=== PATIENT | female | born 1970 | race Caucasian/White ===

== ENCOUNTER 2020-04-29 14:23 | Outpatient (CLI) | payer OTHER, SELFPAY ==
[2020-04-29 15:40] LABS: Add Urine Microscopic? YES; Appearance Urine Clear (Clear); Bilirubin Urine Negative (Negative); Blood Urine 2+ (Negative); Color Urine Straw (Yellow); Glucose Urine UA Negative (Negative); Ketones Urine Negative (Negative); Leukocyte Esterase Ur Negative LEU/UL (NEGATIVE); Mucus Urine Rare /lpf; Nitrate Urine Negative (Negative); Protein Urine Negative (Negative); RBC Urine 0-2 /hpf (0-2); Specific Grav Ur 1.005 (1.001-1.035); Squamous Epithelial Cell Urine Few /hpf (Few); Urobilinogen Urine Negative mg/dL (<2.0); WBC Urine 0-3 /hpf (0-3)
== END 2020-04-29 14:24 | disposition home or self-care (01) ==
PROVIDERS: PCP Physician Assistant; Visit Provider Physician Assistant
DX: R30.0 Dysuria (principal)
CPT/HCPCS: 81001; 87077; 87086; 87088; 87186

== ENCOUNTER 2020-04-30 13:54 | Emergency (ER) | payer OTHER, SELFPAY ==
--- NOTE | ~2020-04-30 | CT_ITS ---
EXAMINATION: CT abdomen pelvis w con DATE: 04/30/2020 15:56 INDICATION: Left flank pain. History kidney stones. TECHNIQUE: Computed tomography (CT) of the abdomen and pelvis was performed with 100 cc Omnipaque 350 intravenous contrast. Automated exposure control and iterative reconstruction technique were employe d. Exam dose: 1476.90 mGy-cm total exam DLP. COMPARISON: 09/03/2016 CT abdomen pelvis FINDINGS: The lung bases are clear. Normal heart size. No pericardial or pleural effusion. The liver, gallbladder, bile ducts, pancreas and pancreatic duct are unremarkable. Likely benign hypoenhancing 1 cm splenic lesion. Normal splenic size. Normal morphology of the adrenal glands. No renal mass lesion or urinary tract calculus or hydroureteronephrosis is evident. There is urothelial enhancement of the left renal pelvis and mild left perinephric fat stranding, sug gesting possible pyelonephritis. The urinary bladder is unremarkable. Status post hysterectomy. 3.9 cm right ovarian cyst. Normal caliber of the abdominal aorta. No intraperitoneal or retroperitoneal or pelvic mass lesion or adenopathy or ascites is noted otherwise. Small sliding hiatal hernia. Normal appendix. No bowel obstruction, bowel wall thickening, pneumatosis or intraperitoneal free air . Small fat-containing umbilical hernia. No suspicious osteolytic or osteoblastic lesions are noted. There is moderate degenerative disease at L4-5 and L5-S1 and some degenerative spurring of the lower thoracic and lumbar spine. IMPRESSION: Mild asymmetric enhancement of the left renal pelvic urothelium and mild left perinephri c fat stranding, suggesting pyelonephritis No urinary tract stones or urinary tract obstruction is identified Reviewed, dictated and finalized at [facility]. Reviewed, dictated and finalized at location [facility]. IMPRESSION: Mild asymmetric enhancement of the left renal pelvic urothelium an d mild left perinephric fat stranding, suggesting pyelonephritis No urinary tract stones or urinary tract obstruction is identified
[2020-04-30 13:58] VITALS: BP 151/94; PULSE 98; RESP 20; TEMP 36.2; O2SAT 100
[2020-04-30 14:58] VITALS: BP 159/94; PULSE 91; RESP 18; TEMP 36.8; O2SAT 100
[2020-04-30 15:13] LABS: Basophils Absolute Auto 0.1 K/mm3 (0.0-0.1); Basophils Percent Auto 0.5 % (0.2-1.2); Eosinophils Absolute Auto 0.3 K/mm3 (0-0.3); Eosinophils Percent Auto 1.9 % (0-4.4); Hematocrit 41.8 % (37.0-47.0); Hemoglobin 14.1 g/dL (12.0-15.0); Immature Granulocyte Absolute 0.09 K/mm3 (0.00-0.031); Immature Granulocyte Percent A 0.5 % (0-0.5); Lymphocytes Percent Auto 15.2 % (18.3-44.2); Mean Corpuscular HGB Conc 33.7 g/dl (32-36); Mean Corpuscular Volume 91.9 fl (80-100); Mean Platelet Volume 10.2 fl (7.4-10.4); Monocytes Absolute Auto 1.7 K/mm3 (0.1-0.6); Monocytes Percent Auto 10.1 % (2.6-8.5); Neutrophils Absolute Auto 11.8 K/mm3 (1.3-6.7); Neutrophils Percent Auto 71.8 % (45.5-73.1); Platelet Count Result 264 k/mm3 (150-375); Red Blood Count 4.55 M/mm3 (4.2-5.4); Red Cell Distribution Width 12.9 % (11.5-14.5); White Blood Count 16.4 K/mm3 (4.5-10.0)
[2020-04-30 15:21] LABS: Add Urine Microscopic? YES; Appearance Urine Cloudy (Clear); Bacteria Urine Trace /hpf; Bilirubin Urine Negative (Negative); Blood Urine 2+ (Negative); Color Urine Yellow (Yellow); Glucose Urine UA Negative (Negative); Ketones Urine Negative (Negative); Leukocyte Esterase Ur 1+ LEU/UL (Negative); Mucus Urine Rare /lpf; Nitrate Urine Negative (Negative); Protein Urine 1+ mg/dL (Negative); Specific Grav Ur 1.016 (1.001-1.035); Squamous Epithelial Cell Urine Many /hpf (Few); Urobilinogen Urine Negative mg/dL (<2.0); WBC Clumps Urine Present /HPF; WBC Urine 31-50 /hpf
--- NOTE | 2020-04-30 15:31 | ED.GENADULT ---
HPI - General Adult General Chief complaint: Back Pain/Injury Stated complaint: Possible kidney stones Time Seen by Provider: 04/30/20 15:01 History of Present Illness HPI narrative: Patient is a 50-year-old female comes into the ED today complaining of left flank pain. The pain started 3 days ago. Is constant. Waxes and wanes in severity. She admits to chills and nausea without any fevers. Denies any urinary symptoms. Admits to previous history of similar symptoms due to kidney stones. She has had this happen to her 3 times before and it was all due to kidney stones. She does not have a urologist. The previous stones passed on their own without intervention. Was seen by her PCP yesterday, prescribed ketorolac which helps a little. Also prescribed Vicodin which she has not taken yet. A CT scan was ordered and this blood to be done tomorrow. Urinalysis was done which was negative for UTI but did show blood. Related Data Allergies Allergy/AdvReac Type Severity Reaction Status Date / Time No Known Allergies Allergy Verified 04/29/20 14:05 Review of Systems Constitutional: Constitutional: Reports as per HPI, Reports chills, Denies fever(s), Denies night sweats and Denies weakness Cardiovascular: Cardiovascular: Denies chest pain, Denies edema, Denies leg edema, Denies dyspnea and Denies orthopnea Respiratory: Respiratory: Denies cough and Denies dyspnea Gastrointestinal: Gastrointestinal: Denies abdominal pain, Denies constipation, Denies diarrhea, Denies nausea and Denies vomiting Comments: See HPI for flank pain Musculoskeletal: Musculoskeletal: Denies abnormal gait, Denies back pain, Denies numbness and Denies tingling Neurologic: Denies Abnormal speech present, Denies abnormal gait, Denies numbness, Denies tingling and Denies weakness Psychiatric: Psychiatric: Denies homicidal ideation and Denies suicidal ideation [facility] Past Medical History Medical History (Updated 04/30/20 @ 18:25 by Roland Gay PA-C) Depression GERD (gastroesophageal reflux disease) Surgical History Surgical History Delivery by section 4x Family History Family History Father Family history of malignant neoplasm Mother Patient's mother is in good health Social History Social History (Updated 04/29/20 @ 14:05 by Clair Rodriguez [facility]) Smoking packs per day: 1 Smoking cigarettes per day: 20.0 Years smoked: 37 Smoking pack-years: 37.00 Smoking status: Current every day smoker Tobacco type: cigarettes Second hand tobacco smoke exposure: No Alcohol intake: current Exam Const: General: cooperative, healthy appearing, comfortable, no acute distress, well developed, alert, awake and Physically active Orientation/consciousness: patient oriented x3 Other: Well-appearing, pleasant HENMT: Head: normal to inspection, normocephalic and atraumatic Ears: external ears normal General nose exam: Normal external nose present Eyes: Pupils: Equal, round and reactive pupils present EOM: EOMs intact bilaterally Neck: Neck: normal visual inspection Chest: Chest palpation & inspection: normal inspection of the chest and no tenderness Resp: Effort & Inspection: normal respiratory effort and able to speak in complete sentences Auscultation: clear to auscultation bilaterally Cardio: Rate: regular rate Rhythm: regular rhythm GI: Inspection: normal to inspection GI Palp: Yes abdominal tenderness (Tender to palpate over left upper quadrant, left flank, left lower quadrant) : General: Yes CVA tenderness (Left-sided CVA tenderness) Back/Spine/Pelvis: Back: CVA tenderness Thoracic/Lumbar Spine: thoracic and lumbar spine normal to inspection Skin: General skin exam: normal color and no rashes or lesions noted Lesions: no lesions Neuro: General: patient oriented x3, no focal motor deficits and CN's II-X
[2020-04-30 15:34] LABS: Anion Gap 5 mmol/L (8-16); Blood Urea Nitrogen 13 mg/dL (7-17); Calcium 8.6 mg/dL (8.4-10.2); Carbon Dioxide 29 mmol/L (22-30); Chloride 104 mmol/L (98-107); Estimated CRCL calculation 100 ml/min; Estimated Glomerular Filt Rate > 60; Glucose 110 mg/dL (65-105); Potassium 4.2 mmol/L (3.4-5.0); Sodium 138 mmol/L (137-145)
[2020-04-30] MEDS: MORPHINE SULFATE (*CRX) 4 MG/ML INJ IV PUSH (15:59)
[2020-04-30] MEDS: LACTATED RINGERS 1,000 ML 999 ML IV CONT (15:59)
[2020-04-30] MEDS: KETOROLAC 15 MG/ML VIAL (*BKC) IV PUSH (16:50)
[2020-04-30] MEDS: ONDANSETRON INJ 4 MG/2 ML VIAL IV PUSH (16:51)
[2020-04-30 17:19] LABS: Lactic Acid Reflex 1.3 mmol/L (0.7-2.1)
[2020-04-30 17:37] VITALS: BP 130/70; PULSE 78; RESP 18; O2SAT 97
[2020-04-30 18:24] VITALS: BP 132/78; PULSE 80; RESP 18; O2SAT 99
== END 2020-04-30 18:25 | disposition home or self-care (01) ==
PROVIDERS: Physician Assistant Medical; Emergency Provider Emergency Medicine; PCP Physician Assistant
DX: N12 Tubulo-interstitial nephritis, not specified as acute or chronic (principal); K21.9 Gastro-esophageal reflux disease without esophagitis; F17.210 Nicotine dependence, cigarettes, uncomplicated
CPT/HCPCS: 36415; 74177; 80048; 81001; 83605; 85025; 87077; 87086; 87088; 87186; 96361; 96365; 96375; 99284; J0696; J1885; J2270; J2405; J7120; Q9967

== ENCOUNTER → 2020-07-25 07:15 | Outpatient (CLI) | payer OTHER, SELFPAY ==
[2020-07-25 19:26] LABS: SARS-CoV-2 RNA PCR Negative
== END ==
PROVIDERS: PCP Physician Assistant; Visit Provider Physician Assistant
DX: R06.02 Shortness of breath (principal); Z20.822 Contact with and (suspected) exposure to COVID-19
CPT/HCPCS: C9803; U0003; U0005

== ENCOUNTER 2021-03-09 07:43 | Outpatient (CLI) | payer OTHER, SELFPAY ==
[2021-03-09 09:00] LABS: Basophils Absolute Auto 0.1 K/mm3 (0.0-0.1); Basophils Percent Auto 0.9 % (0.2-1.2); Eosinophils Absolute Auto 0.4 K/mm3 (0-0.3); Eosinophils Percent Auto 4.4 % (0-4.4); Hematocrit 43.8 % (37.0-47.0); Hemoglobin 14.9 g/dL (12.0-15.0); Immature Granulocyte Absolute 0.03 K/mm3 (0.00-0.031); Immature Granulocyte Percent A 0.3 % (0-0.5); Lymphocytes Absolute Auto 2.88 K/mm3 (0.9-3.2); Lymphocytes Percent Auto 29.7 % (18.3-44.2); Mean Corpuscular Hemoglobin 30.8 pg (26-34); Mean Corpuscular Volume 90.5 fl (80-100); Mean Platelet Volume 10.4 fl (7.4-10.4); Monocytes Absolute Auto 0.8 K/mm3 (0.1-0.6); Monocytes Percent Auto 8.1 % (2.6-8.5); Neutrophils Absolute Auto 5.5 K/mm3 (1.3-6.7); Neutrophils Percent Auto 56.6 % (45.5-73.1); Platelet Count Result 273 k/mm3 (150-375); Red Blood Count 4.84 M/mm3 (4.2-5.4); White Blood Count 9.7 K/mm3 (4.5-10.0)
[2021-03-09 09:04] LABS: Alanine Aminotransferase 27 U/L (4-35); Albumin Level 4.6 g/dL (3.5-5.1); Alkaline Phosphatase 99 U/L (38-126); Anion Gap 7 mmol/L (8-16); Aspartate Amino Transferase 26 U/L (14-36); Bilirubin,Total 0.4 mg/dL (0.2-1.3); Blood Urea Nitrogen 18 mg/dL (7-17); Calcium 9.4 mg/dL (8.4-10.2); Carbon Dioxide 30 mmol/L (22-30); Chloride 103 mmol/L (98-107); Cholesterol 175 mg/dL (0-200); Estimated Glomerular Filt Rate > 60; Glucose 134 mg/dL (65-110); HDL Direct 37 mg/dL; Potassium 4.3 mmol/L (3.4-5.0); Sodium 140 mmol/L (137-145); Triglycerides 211 mg/dL (<150)
[2021-03-09 09:13] LABS: Hemoglobin A1C 6.8 % (<5.7)
[2021-03-09 09:15] LABS: LDL Cholesterol Direct 111 mg/dL
[2021-03-09 09:25] LABS: Vitamin D 25 Hydroxy 16.9 ng/mL
[2021-03-09 10:10] LABS: Folic Acid 9.4 ng/mL (2.76->20)
[2021-03-09 11:23] LABS: Creatinine Urine 193.2 mg/dL
[2021-03-09 11:27] LABS: MALB Creatinine Ratio 6.7 mg/g (0-30); Microalbumin Urine Random 12.9 mg/L (0-16.7)
== END 2021-03-09 07:44 | disposition home or self-care (01) ==
PROVIDERS: PCP Physician Assistant; Visit Provider Physician Assistant
DX: E11.9 Type 2 diabetes mellitus without complications (principal); R53.83 Other fatigue; E55.9 Vitamin D deficiency, unspecified
CPT/HCPCS: 36415; 80053; 80061; 82043; 82306; 82607; 82746; 83036; 84443; 85025

== ENCOUNTER 2021-12-10 09:58 | Emergency (ER) | payer OTHER, SELFPAY ==
--- NOTE | ~2021-12-10 | XR_ITS ---
EXAMINATION: XR chest 2V DATE: 12/10/2021 10:43 INDICATION: Upper back pain radiating to left shoulder. TECHNIQUE: Frontal and lateral views of the chest were obtained. COMPARISON: Chest 2 views 10/25/2018, CT abdomen and pelvis 04/30/2020 FINDINGS: The chest demonstrates clear lungs without pneumonia, pleural effusion, or pneumothorax. Th e heart size is normal. IMPRESSION: 1. No acute cardiopulmonary disease. Reviewed, dictated and finalized at location A.
--- NOTE | 2021-12-10 10:05 | ECG_ITS ---
Measurements Intervals [place] Rate: 72 P: 50 RI: 138 QRS: 17 QRSD: 87 T: 47 QT: 372 QTc: 409 Interpretive Statements SINUS RHYTHM DELAYED PRECORDIAL R/S TRANSITION BORDERLINE ECG COMPARED TO ECG 10/25/2018 10:27:39 NO SIGNIFICANT CHANGES Electronically Signed On 12-10-2021 10:18:53 CDT by Antonio Mathew D.O.
[2021-12-10 10:07] VITALS: BP 154/101; PULSE 81; RESP 16; TEMP 36.4; O2SAT 99
[2021-12-10 10:22] LABS: Basophils Absolute Auto 0.1 K/mm3 (0.0-0.1); Basophils Percent Auto 0.8 % (0.2-1.2); Eosinophils Absolute Auto 0.6 K/mm3 (0-0.3); Eosinophils Percent Auto 5.8 % (0-4.4); Hemoglobin 13.6 g/dL (12.0-15.0); Immature Granulocyte Absolute 0.03 K/mm3 (0.00-0.031); Immature Granulocyte Percent A 0.3 % (0-0.5); Lymphocytes Percent Auto 29.7 % (18.3-44.2); Mean Corpuscular HGB Conc 33.2 g/dl (32-36); Mean Corpuscular Hemoglobin 30.7 pg (26-34); Mean Corpuscular Volume 92.6 fl (80-100); Mean Platelet Volume 10.2 fl (7.4-10.4); Monocytes Absolute Auto 0.8 K/mm3 (0.1-0.6); Monocytes Percent Auto 8.3 % (2.6-8.5); Neutrophils Absolute Auto 5.2 K/mm3 (1.3-6.7); Neutrophils Percent Auto 55.1 % (45.5-73.1); Platelet Count Result 285 k/mm3 (150-375); Red Blood Count 4.43 M/mm3 (4.2-5.4); Red Cell Distribution Width 12.5 % (11.5-14.5); White Blood Count 9.4 K/mm3 (4.5-10.0)
[2021-12-10 10:33] LABS: INR 0.9; Partial Thromboplastin Time 22.6 SECONDS (22.3-36.8)
[2021-12-10 10:46] LABS: Alanine Aminotransferase 24 U/L (6-35); Albumin Level 4.1 g/dL (3.5-5.1); Alkaline Phosphatase 111 U/L (38-126); Anion Gap 12 mmol/L (8-16); Aspartate Amino Transferase 25 U/L (14-36); Bilirubin,Total 0.1 mg/dL (0.2-1.3); Blood Urea Nitrogen 12 mg/dL (7-17); Calcium 8.6 mg/dL (8.4-10.2); Carbon Dioxide 23 mmol/L (22-30); Chloride 104 mmol/L (98-107); Estimated CRCL calculation 90 ml/min; Estimated Glomerular Filt Rate > 60; Glucose 142 mg/dL (65-110); Lipase 273 U/L (23-300); Sodium 139 mmol/L (137-145)
[2021-12-10 10:57] LABS: Troponin I < 0.012 ng/mL (0.000-0.034)
[2021-12-10] MEDS: IBUPROFEN 400 MG TABLET 800 MG PO (12:11)
[2021-12-10] MEDS: ACETAMINOPHEN 500 MG TABLET 1000 MG PO (12:12)
[2021-12-10] MEDS: methocarbamoL 750 MG TABLET 1500 MG PO (12:17)
[2021-12-10] MEDS: LIDOCAINE 5% PATCH 1 PATCH TRANSDERM (12:19)
--- NOTE | 2021-12-10 12:45 | ED.GENADULT ---
HPI - General Adult General Chief complaint: Back Pain/Injury Stated complaint: back pain Time Seen by Provider: 12/10/21 11:19 History of Present Illness HPI narrative: This is a 51-year-old female presenting ED with upper back pain. 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 The next day she woke up with severe pain in her upper left back. Pain is worse with movement. Patient did go to her chiropractor who treated her with electro therapy which has not improved her symptoms. Patient denies chest pain, difficulty breathing, numbness tingling weakness in extremity. Patient has taken some NSAIDs without relief. Related Data Allergies Allergy/AdvReac Type Severity Reaction Status Date / Time No Known Allergies Allergy Verified 12/10/21 11:07 Review of Systems Review of Systems: CONSTITUTIONAL: Denies night sweats. EYES: No eye pain ENT: Denies rhinorrhea CARDIOVASCULAR: Denies palpitations RESPIRATORY: Denies hemoptysis GASTROINTESTINAL: Denies hematemesis GENITOURINARY: Denies hematuria. SKIN: Denies rash MUSCULOSKELETAL: Denies myalgia. NEUROLOGIC: Denies weakness. PSYCHIATRIC: Denies delusions [facility] Past Medical History Medical History Depression GERD (gastroesophageal reflux disease) Surgical History Surgical History Delivery by section 4x Family History Family History Father Family history of malignant neoplasm Mother Patient's mother is in good health Social History Social History Smoking packs per day: 1 Smoking cigarettes per day: 20.0 Years smoked: 37 Smoking pack-years: 37.00 Smoking status: Current every day smoker Tobacco type: cigarettes Second hand tobacco smoke exposure: No Alcohol intake: current Exam Narrative: APPEARANCE: No apparent distress. Head atraumatic. EYES: PERRLA/EOMI, NOSE: Normal no drainage NECK: Supple, Trachea midline RESPIRATORY: CTAB, No increased work of breathing. CARDIOVASCULAR: S1S2 appreciated ABDOMINAL: Soft, nontender, nondistended, MUSCULOSKELETAl: No obvious deformities, tenderness over the left trapezius muscle. No midline tenderness. Full range of movement of the left arm. NEURO: Alert. Moving 4/4 extremities SKIN:: Warm, dry. Normal color PSYCHIATRIC: Normal affect Course Vital Signs Vital signs: Vital Signs Temperature 97.6 F 12/10/21 10:07 Pulse Rate 81 12/10/21 10:07 Respiratory Rate 16 12/10/21 10:07 Blood Pressure 154/101 H 12/10/21 10:07 Pulse Oximetry 99 12/10/21 10:07 Oxygen Delivery Room Air 12/10/21 10:07 Temperature 97.6 F 12/10/21 10:07 Pulse Rate 81 12/10/21 10:07 Respiratory Rate 16 12/10/21 10:07 Blood Pressure 154/101 H 12/10/21 10:07 Pulse Oximetry 99 12/10/21 10:07 Oxygen Delivery Room Air 12/10/21 10:07 Medical Decision Making MDM Narrative Medical decision making narrative: This is a 51-year-old female presenting ED with upper back pain following increased physical activity. Patient has tenderness over the trapezius muscle. Patient retried Motrin Tylenol Robaxin and lidocaine patch. Patient be discharged primary care follow-up. Vital Signs Vital Signs: Vital Signs Temperature 97.6 F 12/10/21 10:07 Pulse Rate 81 12/10/21 10:07 Respiratory Rate 16 12/10/21 10:07 Blood Pressure 154/101 H 12/10/21 10:07 Pulse Oximetry 99 12/10/21 10:07 Oxygen Delivery Room Air 12/10/21 10:07 Temperature 97.6 F 12/10/21 10:07 Pulse Rate 81 12/10/21 10:07 Respiratory Rate 16 12/10/21 10:07 Blood Pressure 154/101 H 12/10/21 10:07 Pulse Oximetry 99 12/10/21 10:07 Oxygen Delivery Room Air 12/10/21 10:07 Lab Data Result diagrams: 12/10/21
[2021-12-10 13:00] VITALS: BP 134/75; PULSE 77; RESP 16; O2SAT 97
== END 2021-12-10 13:00 | disposition home or self-care (01) ==
PROVIDERS: Emergency Provider Emergency Medicine; PCP Physician Assistant
DX: M54.6 Pain in thoracic spine (principal); K21.9 Gastro-esophageal reflux disease without esophagitis; F17.210 Nicotine dependence, cigarettes, uncomplicated
CPT/HCPCS: 36415; 71046; 80053; 83690; 84484; 85025; 85610; 85730; 93005; 99284; A9270

== ENCOUNTER 2022-01-04 07:21 | Outpatient (CLI) | payer OTHER, SELFPAY ==
[2022-01-04 08:29] LABS: Hemoglobin A1C 7.6 % (<5.7)
[2022-01-04 09:20] LABS: Alanine Aminotransferase 37 U/L (6-35); Albumin Level 4.3 g/dL (3.5-5.1); Alkaline Phosphatase 116 U/L (38-126); Anion Gap 11 mmol/L (8-16); Aspartate Amino Transferase 42 U/L (14-36); Bilirubin,Total 0.5 mg/dL (0.2-1.3); Blood Urea Nitrogen 11 mg/dL (7-17); Calcium 8.8 mg/dL (8.4-10.2); Carbon Dioxide 23 mmol/L (22-30); Chloride 104 mmol/L (98-107); Estimated Glomerular Filt Rate > 60; Glucose 157 mg/dL (65-110); Potassium 4.3 mmol/L (3.4-5.0); Sodium 138 mmol/L (137-145)
== END 2022-01-04 07:22 | disposition home or self-care (01) ==
LOC: ANHLAB 07:24
PROVIDERS: PCP Physician Assistant; Visit Provider Physician Assistant
DX: E11.9 Type 2 diabetes mellitus without complications (principal)
CPT/HCPCS: 36415; 80053; 83036

== ENCOUNTER 2022-02-21 16:48 | Emergency (ER) | payer OTHER, SELFPAY ==
[2022-02-21 17:09] VITALS: BP 153/93; PULSE 113; RESP 14; TEMP 37.3; O2SAT 99
[2022-02-21 17:35] LABS: Basophils Absolute Auto 0.1 K/mm3 (0.0-0.1); Basophils Percent Auto 0.5 % (0.2-1.2); Eosinophils Absolute Auto 0.3 K/mm3 (0-0.3); Eosinophils Percent Auto 1.9 % (0-4.4); Hematocrit 39.6 % (37.0-47.0); Hemoglobin 13.3 g/dL (12.0-15.0); Immature Granulocyte Absolute 0.05 K/mm3 (0.00-0.031); Immature Granulocyte Percent A 0.4 % (0-0.5); Lymphocytes Absolute Auto 2.34 K/mm3 (0.9-3.2); Lymphocytes Percent Auto 16.9 % (18.3-44.2); Mean Corpuscular HGB Conc 33.6 g/dl (32-36); Mean Corpuscular Hemoglobin 30.7 pg (26-34); Mean Corpuscular Volume 91.5 fl (80-100); Mean Platelet Volume 10.3 fl (7.4-10.4); Monocytes Absolute Auto 1.2 K/mm3 (0.1-0.6); Monocytes Percent Auto 8.8 % (2.6-8.5); Neutrophils Absolute Auto 9.9 K/mm3 (1.3-6.7); Neutrophils Percent Auto 71.5 % (45.5-73.1); Platelet Count Result 254 k/mm3 (150-375); Red Blood Count 4.33 M/mm3 (4.2-5.4); Red Cell Distribution Width 12.8 % (11.5-14.5); White Blood Count 13.8 K/mm3 (4.5-10.0)
[2022-02-21 17:45] LABS: Alanine Aminotransferase 34 U/L (6-35); Albumin Level 4.2 g/dL (3.5-5.1); Alkaline Phosphatase 106 U/L (38-126); Anion Gap 7 mmol/L (8-16); Aspartate Amino Transferase 23 U/L (14-36); Bilirubin,Total 0.4 mg/dL (0.2-1.3); Blood Urea Nitrogen 10 mg/dL (7-17); Calcium 8.5 mg/dL (8.4-10.2); Carbon Dioxide 25 mmol/L (22-30); Chloride 105 mmol/L (98-107); Estimated CRCL calculation 112 ml/min; Estimated Glomerular Filt Rate > 60; Glucose 122 mg/dL (65-110); Lipase 55 U/L (23-300); Sodium 137 mmol/L (137-145)
[2022-02-21 18:32] LABS: Bilirubin Urine Negative (Negative); Blood Urine 2+ (Negative); Glucose Urine UA Negative (Negative); Ketones Urine Negative (Negative); Leukocyte Esterase Ur 2+ LEU/UL (Negative); Nitrate Urine Negative (Negative); Protein Urine 2+ mg/dL (Negative); Specific Grav Ur 1.015 (1.001-1.035); Urobilinogen Urine 0.2 mg/dL (<2.0); pH Urine 6.5 (5.0-9.0)
[2022-02-21 18:35] LABS: Add Urine Microscopic? YES; Appearance Urine Slightly Cloudy (Clear); Color Urine Yellow (Yellow)
[2022-02-21 18:37] LABS: Bacteria Urine Trace /hpf; Mucus Urine Rare /lpf; Squamous Epithelial Cell Urine Occasional /hpf (Few); WBC Urine >75 /hpf
--- NOTE | 2022-02-21 20:56 | PC.NURSE ---
Patient approached nurses station and reported that she was not waiting any longer and wanted to leave. Patient was alert and ambulatory upon leaving the ED.
== END 2022-02-22 06:54 | disposition left against medical advice (07) ==
LOC: ANHED 21:09
PROVIDERS: Emergency Provider Emergency Medicine; PCP Physician Assistant
DX: R10.31 Right lower quadrant pain (principal)
CPT/HCPCS: 36415; 80053; 81001; 83690; 85025; 87077; 87086; 87186; 99199

== ENCOUNTER 2024-04-01 10:58 | Outpatient (CLI) | payer OTHER, SELFPAY ==
[2024-04-01 11:35] LABS: Alanine Aminotransferase 17 U/L (6-35); Albumin Level 4.2 g/dL (3.5-5.1); Alkaline Phosphatase 97 U/L (38-126); Anion Gap 8 mmol/L (4-12); Aspartate Amino Transferase 21 U/L (14-36); Bilirubin,Total 0.3 mg/dL (0.2-1.3); Blood Urea Nitrogen 17 mg/dL (7-17); Calcium 9.4 mg/dL (8.4-10.2); Carbon Dioxide 28 mmol/L (22-30); Chloride 105 mmol/L (98-107); Cholesterol 149 mg/dL (0-200); Estimated Glomerular Filt Rate > 60; Glucose 85 mg/dL (65-110); HDL Direct 40 mg/dL; Potassium 4.4 mmol/L (3.4-5.0); Sodium 141 mmol/L (137-145); Triglycerides 86 mg/dL (<150)
[2024-04-01 11:46] LABS: LDL Cholesterol Direct 84 mg/dL
[2024-04-01 12:03] LABS: Vitamin D 25 Hydroxy 29.7 ng/mL
--- OUTSIDE RECORDS SUMMARY | 2024-04-01 12:44 | XMS_ITS | Referral Summary ---
Author Organization [facility] [employer] Address [address] [place] [address] Care Team Providers Care Dumpster Operator Name Role Phone Unavailable Primary Care Provider Unavailabl e Source Comments [facility] [employer],non-owned Affiliates and Associated Physician Practices is amultiple site organization consisting of ambulatory clinics and hospital sitesin [place], [place], [place] and [place]. This disclosure is being madepursuant to the Care Everywhere program and may not contain all information available regarding this patient. Last updated 17.[employer] Allergies No known active allergies Medications * Be aware that medications may not be up to date on this document. Alwaysverify current medications with the patient. Medication Sig Dispensed Refills Start Date End Date Status Acetaminophen (TYLENOL EXTRA STRENGTH PO) Take by mouth once. Active aspirin-acetaminophen- caffeine (EXCEDRIN MIGRAINE) 250-250-65 MG tablet Take 1 Tab by mouth every 4 hours as needed. Active omeprazole (PRILOSEC) 10 MG capsule Take 10 mg by mouth daily before breakfast. prn Active cyclobenzaprine (FLEXERIL) 10 MG tablet Take 0.5 Tabs by mouth 3 times daily as needed for Muscle Spasms. 20 Tab 0 05/07/2012 Active Vqfvmyd-Ywhzlrnlu-Lyko min D (CALCIUM MAGNESIUM PO) Take by mouth once daily. Active phentermine (IONAMINE) 15 MG capsule Take 1 Cap by mouth daily before breakfast. 30 Cap 0 07/13/2012 Active escitalopram (LEXAPRO) 20 MG tablet Take 20 mg by mouth once daily Active budesonide-formoterol (SYMBICORT) 160-4.5 MCG/ACT inhaler Inhale 2 Puffs by mouth 2 times daily Active albuterol HFA (PROAIR HFA) 108 (90 BASE) MCG/ACT inhaler Inhale 2 Puffs by mouth every 6 hours as needed Active Ephedrine-Guaifenesin (BRONKAID PO) Take by mouth as needed Active Active Problems Problem Noted Date Diagnosed Date Dysmetabolic syndrome X 11/03/2010 Overview (11/03/2010): TSH 04/16 Morbid obesity 04/15/2010 Classic migraine 04/15/2010 Overview (04/15/2010): Not bad enough to take prophylactic Alcohol use 04/15/2010 Overview (04/15/2010): Binge pattern Seasonal allergic rhinitis 04/15/2010 GERD (gastroesophageal reflux disease) 1 Overview (04/15/2010): prilosec works well Immunizations Name Administration Dates Next Due TD VACCINE 02/06/2005 Social History Tobacco Use Types Packs/Day Years Used Date Smoking Tobacco: Passive Smoke Exposure - Never Smoker Cigarettes 0.5 25 - 04/12/2010 Smokeless Tobacco: Never Alcohol Use Standard Drinks/Week Comments Yes 0 (1 standard drink = 0.6 oz pur e alcohol) 12 beers/day rarely Sex and Gender Information Value Date Recorded Sex Assigned at Not on file Gender Identity Not on file Sexual Orientation Not on file Last Filed Vital Signs Vital Sign Reading Time Taken Comments Blood Pressure 162/74 10/03/2014 1:25 PM CDT Pulse 89 10/03/2014 1:25 PM CDT Temperature 36.4 C (97.5 F) 07/13/2012 9:43 AM CDT Respiratory Rate 18 07/13/2012 9:43 AM CDT Oxygen Saturation 98% 07/13/2012 9:43 AM CDT Inhaled Oxygen Concentration - - Weight 137.7 kg (303 lb 8 oz) 10/03/2014 1:25 PM CDT Height 171.5 cm (5' 7.5 ) 10/03/2014 1:25 PM CDT Body Mass Index 46.83 10/03/2014 1:25 PM CDT Plan of Treatment Not on file Procedures Procedure Name Priority Date/Time Associated Diagnosis Comments LIPID PROFILE Routine 06/17/2010 8:55 AM CDT Lipid screening Screen-endoc/nut/met NEC from Last 3 Months or Most Recently Relevant to Health Maintenance Results * (ABNORMAL) LIPID PROFILE (06/17/2010 8:55 AM CDT) Cholesterol 193 100 - 199 mg/dL [facility] ACCOUNT BILL Triglycerides 185(H) 0 - 149 mg/dL [facility] ACCOUNT BILL HDL Cholesterol 33(L) >39 mg/dL [facility] ACCOUNT BILL Comment: According to ATP-III Guidelines, HDL-C >59 mg/dL is considered a negative risk factor for CHD. VLDL Calculated 37 5 - 40 mg/dL [facility] ACCOUNT BILL LDL Calculated 123(H) 0 - 99 mg/dL [facility] ACCOUNT BILL BLOOD SPECIMEN / Unknown 06/17/2010 8:55 AM CDT 06/17/2010 1:39 PM CDT Narrative Resulting Agency Comment [facility] [address] [id number] Reyes Puente MD LAB - CHEMISTRY KATHI ELLIS Performing Organization Address City/State/[facility] Co de Phone Number [facility] ACCOUNT BILL from Last 3 Months or Most Recently Relevant to Health Maintenance Claudine Irizarry Personal/Family Self [address] [place] [id number] Claudine Irizarry Personal/Family Self 1970 [address] [place] [address]
--- OUTSIDE RECORDS SUMMARY | 2024-04-01 12:44 | XMS_ITS | Clinical Summary ---
Author Organization [employer] Address [address] [place] [address] Care Team Providers Care Clipper Operator Name Role Phone Unavailable Primary Care Provider Unavailabl e Source Comments [facility] [employer],non-owned Affiliates and Associated Physician Practices is amultiple site organization consisting of ambulatory clinics and hospital sitesin [place], [place], [place] and [place]. This disclosure is being madepursuant to the Care Everywhere program and may not contain all information available regarding this patient. Last updated 17.[employer] Allergies No known active allergies Medications * [...] Muscle Spasms. 20 Tab 0 05/07/2012 Active Kpndwbs-Oxbolexyv-Okei min D (CALCIUM MAGNESIUM PO) Take by [...] Administration Dates Next Due TD VACCINE 02/06/2005 Family History Medical History Relation Name Comments Diabetes Maternal Grandmother Heart Failure Maternal Grandmother Hypertension Maternal Grandmother Stroke Maternal Grandmother Relation Name Status Comments Maternal Grandfather Maternal Grandmother Mother Alive Social History Tobacco Use Types Packs/Day Years [...] 10/03/2014 1:25 PM CDT Plan of Treatment Health Maintenance Due Date Last Done Comments COLOGUARD (AGES 45-75) - COL ON CA SCREENING 1970 COLON MONITORING 1968 COLONOSCOPY - COLON CA SCREENING 1968 CT COLONOGRAPHY - COLON CA SCREENING 1970 Colorectal Cancer Screening 1970 FIT - COLON CA SCREENING 1968 FLEX SIG - COLON CA SCREENING 1970 MAMMOGRAM 1970 PAP SMEAR 1968 HIV SCREENING 01/06/1983 HEPATITIS C SCREENING 01/02/1986 HEPATITIS B VACCINE (1 of 3 - 19+ 3-dose series) 01/06/1987 LIPID TESTING 06/18/2011 06/17/2010 DTAP/TDAP/TD VACCINES (2 - T d or Tdap) 02/06/2015 02/06/2005 PNEUMOCOCCAL VACCINE 50+ (1 of 1 - PCV) 01/06/2018 ZOSTER VACCINE (1 of 2) 01/06/2018 COVID-19 VACCINE (1 - 2023-2 5 season) 2023 INFLUENZA VACCINE (#1) 2023 DEPRESSION SCREENING 02/07/2024 HIB VACCINE Aged Out No longer eligi ble based on patient's age to complete this topic HPV VACCINE Aged Out No longer eligi ble based on patient's age to complete this topic MENINGOCOCCAL (Group B) VACCINE Aged Out No longer eligible based on patient's age to complete this topic MENINGOCOCCAL VACCINE Aged Out No danelle aster eligible based on patient's age to complete this topic PNEUMOCOCCAL VACCINE Aged Out No long er eligible based on patient's age to complete this topic Procedures Procedure Name Priority Date/Time Associated Diagnosis [...] PM CDT Narrative Resulting Agency Comment [facility] [address] [id number] Reyes Puente MD LAB - CHEMISTRY KATHI ELLIS [facility] ACCOUNT BILL from Last 3 Months or Most Recently Relevant to Health Maintenance Claudine Irizarry Personal/Family Self [address] [place] [address] Juan CClaudine Alejandro Personal/Family Self 1970 [address] [place] [address]
--- OUTSIDE RECORDS SUMMARY | 2024-04-01 12:44 | XMS_ITS | Patient Health Summary ---
Author Organization [facility] Address [address] [place] [address] Care Team Providers Care Public Relations Specialist Name Role Phone Unavailable Primary Care Provider Unavailabl e Note from [facility],non-owned Affiliates and Associated Physician Practices is amultiple site organization consisting of ambulatory clinics and hospital sitesin [place], [place], [place] and [place]. This disclosure is being madepursuant to the Care Everywhere program and may not contain all information available regarding this patient. Last updated 17.[facility] Allergies No known active allergies Medications * Be aware that medications may not be up to date on this document. Alwaysverify current medications with the patient. * Acetaminophen (TYLENOL EXTRA STRENGTH PO) Take by mouth once. * gawomlt-elsazthmrgoqr-gnaltgeg (EXCEDRIN MIGRAINE) 250-250-65 MG tablet Take 1 Tab by mouth every 4 hours as needed. * omeprazole (PRILOSEC) 10 MG capsule Take 10 mg by mouth daily before breakfast. prn * cyclobenzaprine (FLEXERIL) 10 MG tablet(Started 05/07/2012) Take 0.5 Tabs by mouth 3 times daily as needed for Muscle Spasms. * Ljsdsiw-Sueivxpfv-Inyictw D (CALCIUM MAGNESIUM PO) Take by mouth once daily. * phentermine (IONAMINE) 15 MG capsule(Started 07/13/2012) Take 1 Cap by mouth daily before breakfast. * escitalopram (LEXAPRO) 20 MG tablet Take 20 mg by mouth once daily * budesonide-formoterol (SYMBICORT) 160-4.5 MCG/ACT inhaler Inhale 2 Puffs by mouth 2 times daily * albuterol HFA (PROAIR HFA) 108 (90 BASE) MCG/ACT inhaler Inhale 2 Puffs by mouth every 6 hours as needed * Ephedrine-Guaifenesin (BRONKAID PO) Take by mouth as needed Active Problems Problem Noted Date Diagnosed Date Dysmetabolic syndrome X 11/03/2010 Morbid obesity 04/15/2010 Classic migraine 04/15/2010 Alcohol use 04/15/2010 Seasonal allergic rhinitis 04/15/2010 GERD (gastroesophageal reflux disease) 1 Immunizations * TD VACCINE(Given 02/06/2005) Social History Tobacco Use Types Packs/Day Years [...] Mass Index 46.83 10/03/2014 1:25 PM CDT Procedures * CBC W AUTO DIFFERENTIAL(Performed 06/17/2010) Performed for Lipid screening, Screen-endoc/nut/met NEC * COMPREHENSIVE METABOLIC PANEL(Performed 06/17/2010) Performed for Lipid screening, Screen-endoc/nut/met NEC * TSH HI LOW REFLEX FREE T4(Performed 06/17/2010) Performed for Lipid screening, Screen-endoc/nut/met NEC * LIPID PROFILE(Performed 06/17/2010) Performed for Lipid screening, Screen-endoc/nut/met NEC Results * TSH HI LOW REFLEX FREE T4 (PO REF LAB) (06/17/2010 8:55 AM CDT) TSH 1.270 0.450 - 4.500 uIU/mL [facility] ACCOUNT BILL BLOOD SPECIMEN / Unknown 06/17/2010 8:55 AM CDT 06/17/2010 1:39 PM CDT Narrative Resulting Agency Comment [facility] [address] [phone] Reyes Puente MD LAB - CHEMISTRY KATHI ELLIS [facility] ACCOUNT BILL * CBC W AUTO DIFFERENTIAL (06/17/2010 8:55 AM CDT) WBC 8.7 4.0 - 10.5 x10E3/uL [facility] ACCOUNT BILL RBC 4.47 3.80 - 5.10 x10E6/uL [facility] ACCOUNT BILL Hemoglobin 12.4 11.5 - 15.0 g/dL [facility] ACCOUNT BILL Hematocrit 37.4 34.0 - 44.0 % [facility] ACCOUNT BILL MCV 84 80 - 98 fL [facility] ACCOUNT BILL MCH 27.7 27.0 - 34.0 pg [facility] ACCOUNT BILL MCHC 33.2 32.0 - 36.0 g/dL [facility] ACCOUNT BILL RDW 14.7 11.7 - 15.0 % [facility] ACCOUNT BILL Platelet Count 328 140 - 415 x10E3/uL [facility] ACCOUNT BILL Granulocytes % 58 40 - 74 % [facility] ACCOUNT BILL Lymphocytes % 28 14 - 46 % [facility] ACCOUNT BILL Monocytes % 8 4 - 13 % [facility] ACCOUNT BILL Eosinophils % 5 0 - 7 % [facility] ACCOUNT BILL Basophils % 1 0 - 3 % [facility] ACCOUNT BILL Immature Cells NOT NEEDED [facility] ACCOUNT BILL Comment:Ancillary determined the test is not needed Granulocytes Absolute 5.1 1.8 - 7.8 x10E3/uL [facility] ACCOUNT BILL Lymphocytes Absolute 2.5 0.7 - 4.5 x10E3/uL [facility] ACCOUNT BILL Monocytes Absolute 0.7 0.1 - 1.0 x10E3/uL [facility] ACCOUNT BILL Eosinophils Absolute 0.4 0.0 - 0.4 x10E3/uL [facility] ACCOUNT BILL Basophils Absolute 0.1 0.0 - 0.2 x10E3/uL [facility] ACCOUNT BILL Immature Granulocytes 0 0 - 1 % [facility] ACCOUNT BILL Comment: Effective June 28, 2010, the reference intervals will be changing to: 0 - 2 Immature Granulocytes Absolute 0.0 0.0 - 0.1 x10E3/uL [facility] ACCOUNT BILL nRBC NOT NEEDED [facility] ACCOUNT BILL Comment:Ancillary determined the test is not needed Comment Hematology NOT NEEDED [facility] ACCOUNT BILL Comment:Ancillary determined the test is not needed BLOOD SPECIMEN / Unknown 06/17/2010 8:55 AM CDT 06/17/2010 1:39 PM CDT Narrative Resulting Agency Comment [facility] [address] [phone] Reyes Puente MD LAB - HEMATOLOGY ORD ERABLES [facility] ACCOUNT BILL * (ABNORMAL) COMPREHENSIVE METABOLIC PANEL (06/17/2010 8:55 AM CDT) Glucose 106(H) 65 - 99 mg/dL [facility] ACCOUNT BILL BUN 15 6 - 24 mg/dL [facility] ACCOUNT BILL Creatinine 0.80 0.57 - 1.00 mg/dL [facility] ACCOUNT BILL eGFR by MDRD 91 >59 mL/min/1.7 3 [facility] ACCOUNT BILL eGFR by MDRD 105 >59 mL/min/1.7 3 [facility] ACCOUNT BILL Comment: Note: A persistent eGFR <60 mL/min/1.73 m2 (3 months or more) may indicate chronic kidney disease. An eGFR >59 mL/min/1.73 m2 with an elevated urine protein also may indicate chronic kidney disease. Calculated using CKD-EPI formula. BUN/Creatinine Ratio 19 9 - 23 [facility] ACCOUNT BILL Sodium 137 135 - 145 mmol/L [facility] ACCOUNT BILL Potassium 4.3 3.5 - 5.2 mmol/L [facility] ACCOUNT BILL Chloride 102 97 - 108 mmol/L [facility] ACCOUNT BILL CO2 22 20 - 32 mmol/L [facility] ACCOUNT BILL Calcium 9.0 8.7 - 10.2 mg/dL [facility] ACCOUNT BILL Protein Total 6.4 6.0 - 8.5 g/dL [facility] ACCOUNT BILL Albumin 4.1 3.5 - 5.5 g/dL [facility] ACCOUNT BILL Globulin Total 2.3 1.5 - 4.5 g/dL [facility] ACCOUNT BILL Albumin/Globulin Ratio 1.8 1.1 - 2.5 [facility] ACCOUNT BILL Bilirubin Total 0.2 0.0 - 1.2 mg/dL [facility] ACCOUNT BILL Alkaline Phosphatase 91 25 - 150 IU/L [facility] ACCOUNT BILL AST 18 0 - 40 IU/L [facility] ACCOUNT BILL ALT 19 0 - 40 IU/L [facility] ACCOUNT BILL BLOOD SPECIMEN / Unknown 06/17/2010 8:55 AM CDT 06/17/2010 1:39 PM CDT Narrative Resulting Agency Comment [facility] [place] [address] [facility] [phone] Reyes Puente MD LAB - CHEMISTRY KATHI ELLIS Performing Organization Address [facility] Co de Phone Number [facility] ACCOUNT BILL * (ABNORMAL) LIPID PROFILE (06/17/2010 8:55 AM [...] PM CDT Narrative Resulting Agency Comment [facility] [place] [address] [facility] [phone] Reyes Puente MD LAB - CHEMISTRY KATHI ELLIS [facility] ACCOUNT BILL
== END 2024-04-01 10:59 | disposition home or self-care (01) ==
PROVIDERS: PCP Internal Medicine; Visit Provider Internal Medicine
DX: E11.9 Type 2 diabetes mellitus without complications (principal); E78.5 Hyperlipidemia, unspecified; E55.9 Vitamin D deficiency, unspecified
CPT/HCPCS: 36415; 80053; 80061; 82306; 83036

== ENCOUNTER 2024-04-02 08:34 | Outpatient (CLI) | payer OTHER, SELFPAY ==
--- NOTE | ~2024-04-02 | XR_ITS ---
EXAMINATION: XR hip BI 2V w AP pelvis DATE: 04/02/2024 08:54 INDICATION: Bilateral hip pain. TECHNIQUE: An anteroposterior view of the pelvis and 2 views of each hip were obtained. COMPARISON: CT abdomen and pelvis 04/30/2020 FINDINGS: There is lumbar dextrocurvature and severe spondylosis. No fracture. There is mild osteoart hritis of the hips. Osteitis pubis is noted. IMPRESSION: 1. Mild osteoarthritis of the hips. Reviewed, dictated and finalized at location A. [employer] TECHNICIAN
--- OUTSIDE RECORDS SUMMARY | 2024-04-02 08:51 | XMS_ITS | Clinical Summary ---
Author Organization [employer] [facility] Address [address] [place] [address] Care Team Providers Care Phys Therapist Name Role Phone Unavailable Primary Care Provider Unavailabl e Source Comments [facility],non-owned Affiliates and Associated Physician Practices is amultiple site organization consisting of ambulatory clinics and hospital sitesin [place], [place], [place] and [place]. This disclosure is being madepursuant to the Care Everywhere program and may not contain all information available regarding this patient. Last updated 17.[employer] Allergies No known active allergies Medications * [...] Muscle Spasms. 20 Tab 0 05/07/2012 Active Vhyloli-Jexbboczs-Uzfe min D (CALCIUM MAGNESIUM PO) Take by [...] PM CDT Narrative Resulting Agency Comment [facility] [address] [phone] Reyes Puente MD LAB - CHEMISTRY KATHI ELLIS [facility] ACCOUNT BILL from Last 3 Months or Most Recently Relevant to Health Maintenance Claudine Irizarry Personal/Family Self [address] [place] [address] Juan CClaudine Alejandro Personal/Family Self 1970 [address] [place] [address]
--- OUTSIDE RECORDS SUMMARY | 2024-04-02 08:51 | XMS_ITS | Patient Health Summary ---
Author Organization [facility] Address [address] [place] [address] Care Team Providers Care Airframe Technician Name Role Phone Unavailable Primary Care Provider Unavailabl e Note from [facility],non-owned Affiliates and Associated Physician Practices is amultiple site organization consisting of ambulatory clinics and hospital sitesin [place], [place], [place] and [place]. This disclosure is being madepursuant to the Care Everywhere program and may not contain all information available regarding this patient. Last updated 17.[facility] Allergies No known active allergies Medications * Be aware that medications may not be up to date on this document. Alwaysverify current medications with the patient. * Acetaminophen (TYLENOL EXTRA STRENGTH PO) Take by mouth once. * iwfiges-lcyhanjbtmamm-lcepltqp (EXCEDRIN MIGRAINE) 250-250-65 MG tablet Take 1 Tab by mouth every 4 hours as needed. * omeprazole (PRILOSEC) 10 MG capsule Take 10 mg by mouth daily before breakfast. prn * cyclobenzaprine (FLEXERIL) 10 MG tablet(Started 05/07/2012) Take 0.5 Tabs by mouth 3 times daily as needed for Muscle Spasms. * Nplfecj-Bgufsivwz-Snynvsn D (CALCIUM MAGNESIUM PO) Take by mouth [...] PM CDT Narrative Resulting Agency Comment [facility] [address] [phone] Reyes Puente MD LAB - CHEMISTRY KATHI [...] PM CDT Narrative Resulting Agency Comment [facility] [address] [phone] Reyes Puente MD LAB - HEMATOLOGY ORD [...] PM CDT Narrative Resulting Agency Comment [facility] [place] [address] [phone] Reyes Puente MD LAB - CHEMISTRY KATHI ELLIS Performing Organization Address [facility] Co de Phone Number [facility] ACCOUNT [...] PM CDT Narrative Resulting Agency Comment [facility] [place] [address] [facility] [phone] Reyes Puente MD LAB - CHEMISTRY KATHI ELLIS [facility] ACCOUNT BILL
--- OUTSIDE RECORDS SUMMARY | 2024-04-02 08:51 | XMS_ITS | Referral Summary ---
Author Organization [facility] Address [address] [place] [address] Care Team Providers Care Tooth Cutter Spur Name Role Phone Unavailable Primary Care Provider Unavailabl e Source Comments [facility],non-owned Affiliates and Associated Physician Practices is amultiple site organization consisting of ambulatory clinics and hospital sitesin [place], [place], [place] and [place]. This disclosure is being madepursuant to the Care Everywhere program and may not contain all information available regarding this patient. Last updated 17.[employer] Allergies No known active allergies Medications * [...] Muscle Spasms. 20 Tab 0 05/07/2012 Active Edoztkd-Faehtpwaa-Ykgy min D (CALCIUM MAGNESIUM PO) Take by [...] PM CDT Narrative Resulting Agency Comment [facility] [address] [phone] Reyes Puente MD LAB - CHEMISTRY KATHI ELLIS Performing Organization Address City/State/[facility] Co de Phone Number [facility] ACCOUNT BILL from Last 3 Months or Most Recently Relevant to Health Maintenance Claudine Irizarry Personal/Family Self [address] [place] [phone] Claudine Irizarry Personal/Family Self 1970 [address] [place] [address]
== END 2024-04-02 08:35 | disposition home or self-care (01) ==
PROVIDERS: PCP Internal Medicine; Visit Provider Internal Medicine
DX: M16.0 Bilateral primary osteoarthritis of hip (principal)
CPT/HCPCS: 73521

== ENCOUNTER 2024-08-01 00:02 | Day surgery (SDC) | payer OTHER, SELFPAY ==
[2024-07-15 14:48] VITALS: BMI 36.5
[2024-08-01 06:13] VITALS: BP 118/81; PULSE 78; RESP 12; TEMP 36.5; O2SAT 99
[2024-08-01 06:36] LABS: Glucose Point of Care 97 mg/dl (65-105)
[2024-08-01] MEDS: LACTATED RINGERS 1,000 ML 150 ML IV CONT (06:46)
--- NOTE | 2024-08-01 07:12 | P.PNAN_ITS ---
Anes - Initial Pre Proc Eval Procedure: Operation Date: 08/01/24 07:30 Proposed Procedures p Screening Colonoscopy - Luis A Alonzo MD Date/Time: 08/01/24 07:12 Surgeon: Luis A Alonzo MD Pre Op Diagnosis: Hx of polyps Patient Data Age: 54 Gender: F Height: 1.73 m Weight: 109.3 kg Last Vital Signs Temp 36.5 C 08/01/24 06:13 Pulse 78 08/01/24 06:13 Resp 12 08/01/24 06:13 BP 118/81 08/01/24 06:13 Pulse Ox 99 08/01/24 06:13 O2 Del Method Room Air 08/01/24 06:13 Allergies Allergy/AdvReac Type Severity Reaction Status Date / Time No Known Allergies Allergy Verified 08/01/24 06:09 Home Medications ?Medication ?Instructions ?Recorded ?Confirmed ?Type acetaminophen 500 mg tablet 1,000 mg (2 x 500 mg) PO TID PRN 12/10/21 07/15/24 Rx sukhdev 7 days #42 tabs ibuprofen 800 mg tablet 800 mg PO TID PRN pain 7 days #21 12/10/21 07/15/24 Rx tabs alprazolam 0.5 mg tablet 0.5 mg PO DAILY PRN anxiety #30 01/11/22 07/15/24 Rx tabs lisinopril 5 mg tablet See Rx Instructions .Route 12/07/23 08/01/24 Rx .COMPLEX #90 tabs metformin 500 mg tablet See Rx Instructions .Route 02/08/24 08/01/24 Rx .COMPLEX #180 tabs montelukast 10 mg tablet 10 mg PO DAILY #90 tabs 02/20/24 08/01/24 Rx semaglutide 1 mg/dose (4 mg/3 mL) 1 mg (0.75 mL) subcut WEEKLY #9 mL 03/19/24 08/01/24 Rx subcutaneous pen injector (Ozempic) budesonide-formoterol HFA 160 See Rx Instructions .Route 03/28/24 08/01/24 Rx mcg-4.5 mcg/actuation aerosol .COMPLEX #30.6 grams inhaler (Symbicort) albuterol sulfate 2.5 mg/3 mL 2.5 mg (3 mL) inhalation Q6H PRN 07/10/24 07/15/24 Rx (0.083 %) solution for nebulization shortness of breath or wheezing #360 mL rosuvastatin 5 mg tablet See Rx Instructions .Route 07/26/24 08/01/24 Rx .COMPLEX #90 tabs bupropion HCl 150 mg 24 hr tablet, See Rx Instructions .Route 08/16/24 Rx extended release .COMPLEX #90 tabs Laboratory Tests 08/01/24 06:31 POC Capillary Glucose 97 mg/dl (65-105) Patient hx anesthesia problems: none Family hx anesthesia problems: none Results Review: All pre-operative results and documents have been reviewed as part of the pre- operative evaluation. [facility] Past Medical History Medical History (Updated 08/01/24 @ 07:31 by Luis A Alonzo MD) Anxiety Diabetes mellitus SESAR (obstructive sleep apnea) Bipap Asthma Calculus of kidney GERD (gastroesophageal reflux disease) Depression Surgical History Surgical History Delivery by section 4x Family History Family History Father Family history of malignant neoplasm Mother Patient's mother is in good health Social History Social History Smoking packs per day: 0.75 Smoking cigarettes per day: 15.0 Years smoked: 40 Smoking pack-years: 30.00 Smoking status: Current every day smoker Tobacco type: cigarettes Second hand tobacco smoke exposure: No Alcohol intake: current Alcohol use details: 6 drinks per year Substance use: unknown Substance use type: marijuana Lack of Transportation: No Lack of Food: Never True Current Housing: I Have Housing Concerned About Future Housing: No Difficulty Paying Gas/Electric Bills: No Difficulty Paying for Meds: No Currently Unemployed: No Education: High School Diploma/GED Difficulty w/ Childcare or Family Care: No Spiritual care concerns: No Anes - Eval Final PreProcedure Day of Procedure 08/01/24 07:12 Patient weight: obese Heart: regular rate and rhythm Lungs: clear to auscultation Airway: Mallampati scale class II Neurological: alert and oriented Last oral intake: >/= 8 hours ASA classification: III Emergent: no Anesthetic plan: proceed Anesthesia type and monitoring: general GIVS and standard monitoring Results Review: All pre-operative results and documents have been reviewed as part of the pre- operative evaluation. Informed Consent: The patient's anesthetic plan and its attendant risks and benefits were discussed with the patient/family/POA. Questions were solicited and answers provided to the satisfaction of the patient/family/POA.
--- NOTE | 2024-08-01 07:30 | PM.IMHP ---
H&P: HPI History of Present Illness Date/Time: 08/01/24 07:30 Chief Complaint: Screening colonoscopy Narrative: This is the patient's first colonoscopy. There are no GI symptoms and there is no family history of colorectal cancer. Review of Systems Review of Systems: All systems reviewed & are unremarkable except as noted in HPI and below PMFSH Past Medical History Medical History (Updated 08/01/24 @ 07:31 by Luis A Alonzo MD) Anxiety Diabetes mellitus SESAR (obstructive sleep apnea) Bipap Asthma Calculus of kidney GERD (gastroesophageal reflux disease) Depression Surgical History Surgical History Delivery by section 4x Family History Family History Father Family history of malignant neoplasm Mother Patient's mother is in good health Social History Social History Smoking packs per day: 0.75 Smoking cigarettes per day: 15.0 Years smoked: 40 Smoking pack-years: 30.00 Smoking status: Current every day smoker Tobacco type: cigarettes Second hand tobacco smoke exposure: No Alcohol intake: current Alcohol use details: 6 drinks per year Substance use: unknown Substance use type: marijuana Lack of Transportation: No Lack of Food: Never True Current Housing: I Have Housing Concerned About Future Housing: No Difficulty Paying Gas/Electric Bills: No Difficulty Paying for Meds: No Currently Unemployed: No Education: High School Diploma/GED Difficulty w/ Childcare or Family Care: No Spiritual care concerns: No Meds Home Medications and Allergies Home Medications ?Medication ?Instructions ?Recorded ?Confirmed ?Type acetaminophen 500 mg tablet 1,000 mg (2 x 500 mg) PO TID PRN 12/10/21 07/15/24 Rx sukhdev 7 days #42 tabs ibuprofen 800 mg tablet 800 mg PO TID PRN pain 7 days #21 12/10/21 07/15/24 Rx tabs alprazolam 0.5 mg tablet 0.5 mg PO DAILY PRN anxiety #30 01/11/22 07/15/24 Rx tabs bupropion HCl 150 mg 24 hr tablet, See Rx Instructions .Route 11/22/23 08/01/24 Rx extended release .COMPLEX #90 tabs lisinopril 5 mg tablet See Rx Instructions .Route 12/07/23 08/01/24 Rx .COMPLEX #90 tabs metformin 500 mg tablet See Rx Instructions .Route 02/08/24 08/01/24 Rx .COMPLEX #180 tabs montelukast 10 mg tablet 10 mg PO DAILY #90 tabs 02/20/24 08/01/24 Rx semaglutide 1 mg/dose (4 mg/3 mL) 1 mg (0.75 mL) subcut WEEKLY #9 mL 03/19/24 08/01/24 Rx subcutaneous pen injector (Ozempic) budesonide-formoterol HFA 160 See Rx Instructions .Route 03/28/24 08/01/24 Rx mcg-4.5 mcg/actuation aerosol .COMPLEX #30.6 grams inhaler (Symbicort) albuterol sulfate 2.5 mg/3 mL 2.5 mg (3 mL) inhalation Q6H PRN 07/10/24 07/15/24 Rx (0.083 %) solution for nebulization shortness of breath or wheezing #360 mL rosuvastatin 5 mg tablet See Rx Instructions .Route 07/26/24 08/01/24 Rx .COMPLEX #90 tabs Allergies Allergy/AdvReac Type Severity Reaction Status Date / Time No Known Allergies Allergy Verified 08/01/24 06:09 Vital Signs Vital Signs - 24 hr 08/01/24 06:13 Temperature 97.7 F Pulse Rate 78 Respiratory Rate 12 Blood Pressure 118/81 Pulse Oximetry 99 Oxygen Delivery Room Air Exam Const: General: cooperative and healthy appearing Resp: Effort & Inspection: normal respiratory effort and able to speak in complete sentences Auscultation: clear to auscultation bilaterally Cardio: Rate: regular rate Rhythm: regular rhythm GI: Inspection: normal to inspection GI Palp: No No hepatosplenomegaly present Auscultation: normal bowel sounds Rectal Exam: deferred Skin: General skin exam: normal color Psych: Appearance: grossly normal Mental Status: mental status grossly normal Assessment and Plan Assessment and plan (1) Encounter for screening colonoscopy: Code(s): Z12.11 - Encounter for screening for malignant neoplasm of colon Status: Acute Plan The patient is deemed a good candidate for the procedure. Consent signed. Will proceed.
--- NOTE | 2024-08-01 07:43 | S_PTH ---
PATIENT: Claudine Irizarry LOC: [facility] U#:[id number] AGE/SX: 54/F ROOM: RE08/01/[address]: Luis A Alonzo MD : 1970 BED: DIS: 08/01/2024 SPEC #: [id number] RECD: 08/01/24 09:58 STATUS: KACIE RESammi #: [id number] MARIBEL: 08/01/24 07:[address]: Luis A Alonzo DEPT: [facility] Surgical RECD BY: Afshan Barnes ENTERED: 08/01/24 09:58 SP TYPE: Surgical OTHR DR: Matthias Harden DO Tissues: A - Colon Polypectomy Procedures: Hematoxylin and Eosin Stain Gross and Microscopic Level 4
[2024-08-01 07:51] VITALS: BP 113/65; PULSE 82; RESP 23; O2SAT 100
[2024-08-01 08:01] VITALS: BP 104/74; PULSE 88; RESP 20; O2SAT 100
[2024-08-01 08:06] LABS: Glucose Point of Care 89 mg/dl (65-105)
[2024-08-01 08:11] VITALS: BP 110/60; PULSE 73; RESP 21; O2SAT 100
== END 2024-08-01 08:23 | disposition home or self-care (01) ==
PROVIDERS: PCP Internal Medicine; Referring Provider Internal Medicine; Visit Provider Internal Medicine Gastroenterology
PROC: 0DJD8ZZ Inspection of Lower Intestinal Tract, Via Natural or Artificial Opening Endoscopic (ICD-10-PCS; CPT 45378; principal; 2024-08-01 07:30)
DX: Z12.11 Encounter for screening for malignant neoplasm of colon (principal); K63.5 Polyp of colon; F41.9 Anxiety disorder, unspecified; E11.9 Type 2 diabetes mellitus without complications; J45.909 Unspecified asthma, uncomplicated; K21.9 Gastro-esophageal reflux disease without esophagitis; F32.A Depression, unspecified; G47.33 Obstructive sleep apnea (adult) (pediatric); F12.90 Cannabis use, unspecified, uncomplicated; F17.210 Nicotine dependence, cigarettes, uncomplicated; Z79.1 Long term (current) use of non-steroidal anti-inflammatories (NSAID); Z79.84 Long term (current) use of oral hypoglycemic drugs; Z79.85 Long-term (current) use of injectable non-insulin antidiabetic drugs; Z79.51 Long term (current) use of inhaled steroids; Z99.89 Dependence on other enabling machines and devices; Z98.890 Other specified postprocedural states; Z87.442 Personal history of urinary calculi; Z80.9 Family history of malignant neoplasm, unspecified
CPT/HCPCS: 45385; 82948; 88305; J2003; J2704; J7120

== ENCOUNTER 2024-09-05 15:11 | Outpatient (CLI) | payer OTHER, SELFPAY ==
--- NOTE | ~2024-09-05 | MM_ITS ---
EXAMINATION: MM screening karolina BI w juan HISTORY: Screening TECHNIQUE: Craniocaudal and mediolateral oblique 3-D tomosynthesis images were obtained and synthetic 2-D images were generated. CAD analysis was submitted and interpreted. COMPARISON: Comparison to multiple prior studies sequentially, with oldest reviewed study dated 10/20. BREAST PARENCHYMAL COMPOSITION: Not dense: There are scattered areas of fibroglandular density. FINDINGS: There is no evidence of suspicious mass, calcification, or architectural distortion to sugg est malignancy in either breast. There has been no suspicious interval change. IMPRESSION: 1. No mammographic evidence of malignancy. 2. Recommend routine screening mammography in one year. BI-RADS Category 1: Negative Reviewed, dictated and finalized at location B.
== END 2024-09-05 15:12 | disposition home or self-care (01) ==
LOC: MICIMG 15:12
PROVIDERS: PCP Internal Medicine; Visit Provider Internal Medicine
DX: Z12.31 Encounter for screening mammogram for malignant neoplasm of breast (principal)
CPT/HCPCS: 77063; 77067

== ENCOUNTER 2024-10-08 08:25 | Emergency (ER) | payer OTHER, SELFPAY ==
[2024-10-08] VITALS (20 sets, daily range): BP systolic 114–130; BP diastolic 58–81; PULSE 84–111; RESP 18–25; TEMP 36.9; O2SAT 94–100
--- NOTE | ~2024-10-08 | XR_ITS ---
EXAMINATION: XR chest 1V portable 10/08/2024 09:27 INDICATION: Shortness of breath TECHNIQUE:A single portable AP upright frontal chest COMPARISON: 12/10/2021 FINDINGS: Small opacities in the lower lungs. The cardiomediastinal silhouette is within normal limits. There are no pleural effusions. There is no pneumothorax suspected. IMPRESSION: 1: Small opacities in the mid and lower lungs which represents atelectasis/scarring or infiltrates. Reviewed, dictated and finalized at location Q. IMPRESSION: 1: Small opacities in the mid and lower lungs which represents atelectasis/scar ring or infiltrates.
--- OUTSIDE RECORDS SUMMARY | 2024-10-08 08:31 | XMS_ITS | Clinical Summary ---
Author Organization [facility] Address [address] [place] [address] Care Team Providers Care Journeyman Plumber Name Role Phone Unavailable Primary Care Provider Unavailabl e Source Comments [facility],non-owned Affiliates and Associated Physician Practices is amultiple site organization consisting of ambulatory clinics and hospital sitesin [place], [place], [place] and [place]. This disclosure is being madepursuant to the Care Everywhere program and may not contain all information available regarding this patient. Last updated 17.[facility] Allergies No known active allergies Medications * Be aware that medications may not be up to date on this document. Alwaysverify current medications with the patient. Acetaminophen (TYLENOL EXTRA STRENGTH PO) Take by mouth once. Active aspirin-acetamin ophen-caffeine (EXCEDRIN MIGRAINE) 250-250-65 MG tablet Take 1 Tab by mouth every 4 hours as needed. Active omeprazole (PRILOSEC) 10 MG capsule Take 10 mg by mouth daily before breakfast. prn Active cyclobenzaprine (FLEXERIL) 10 MG tablet Take 0.5 Tabs by mouth 3 times daily as needed for Muscle Spasms. 20 Tab 0 05/07/2012 Active Calcium-Magnesiu m-Vitamin D (CALCIUM MAGNESIUM PO) Take by mouth once daily. Active phentermine (IONAMINE) 15 MG capsule Take 1 Cap by mouth daily before breakfast. 30 Cap 0 07/13/2012 Active escitalopram (LEXAPRO) 20 MG tablet Take 20 mg by mouth once daily Active budesonide-formo terol (SYMBICORT) 160-4.5 MCG/ACT inhaler Inhale 2 Puffs by mouth 2 times daily Active albuterol HFA (PROAIR HFA) 108 (90 BASE) MCG/ACT inhaler Inhale 2 Puffs by mouth every 6 hours as needed Active Ephedrine-Guaife nesin (BRONKAID PO) Take by mouth as needed Active Active Problems Problem Noted Date Diagnosed Date Dysmetabolic syndrome X 11/03/2010 Overview (11/03/2010): TSH 04/16 Morbid obesity 04/15/2010 Classic migraine 04/15/2010 Overview (04/15/2010): Not bad enough to take prophylactic Alcohol use 04/15/2010 Overview (04/15/2010): Binge pattern Seasonal allergic rhinitis 04/15/2010 GERD (gastroesophageal reflux disease) 1 Overview (04/15/2010): prilosec works well Immunizations Immunization Administration Dates Next Due TD VACCINE 02/06/2005 [...] oz pur e alcohol) 12 beers/day rarely Comments Unknown Sex and Gender Information Value Date Recorded Sex Assigned at Not on file 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 Gender Identity Not on file Sexual Orientation Not on file 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 Not on file Not on file Last Filed Vital Signs [...] 1:25 PM CDT Height 171.5 cm (5' 7.5) 10/03/2014 1:25 PM CDT Body Mass Index [...] - COLON CA SCREENING 1968 MAMMOGRAM 1968 HIV SCREENING 01/06/1983 HEPATITIS C SCREENING 01/02/1986 HEPATITIS B VACCINE (1 of 3 - 19+ 3-dose series) 01/06/1987 PAP SMEAR 01/06/1989 LIPID TESTING 06/18/2011 06/17/2010 DTAP/TDAP/TD VACCINES (2 - T d or Tdap) 02/06/2015 02/06/2005 PNEUMOCOCCAL VACCINE 50+ (1 of 1 - PCV) 01/06/2018 ZOSTER VACCINE (1 of 2) 01/06/2018 COVID-19 VACCINE (1 - 2023-2 5 season) 2023 DEPRESSION SCREENING 02/07/2024 INFLUENZA VACCINE (#1) 2024 HIB VACCINE Aged Out No longer eligi ble based on patient's age to complete this topic HPV VACCINE Aged Out No longer eligi ble based on patient's age to complete this topic MENINGOCOCCAL (Group B) VACC INE SHARED DECISION-MAKING Aged Out No longer eligibl e based on patient's age to complete this topic MENINGOCOCCAL GROUPS A/C/Y/W VACCINE Aged Out No longer eligible b ased on patient's age to complete this topic [...] PM CDT Narrative Resulting Agency Comment [facility] [place] [address] [id number] Reyes Puente MD LAB - CHEMISTRY ORDERABLES Fi nal Result [facility] ACCOUNT BILL [address] [place] [address] from Last 3 Months or Most Recently Relevant to Health Maintenance Insurance [facility] CARE SELF PAY NO INSURANCE Member Subscriber Plan / Payer (Ef fective for All Dates) Name:Juan Liu Member ID:Not on file Relation to Subscriber:Not on file Name:JUAN LIU Subscriber ID:Not on file (Home) Address: [address] [place] [address] Payer ID:Not on file Group ID:Not on file Type:Self Pay Address: [place], [place] [facility]
[2024-10-08] MEDS: ALBUTEROL SULFATE NEB 2.5 MG/3 ML INH 5 MG INHALATION ×3 (08:44→09:00)
[2024-10-08] MEDS: IPRATROPIUM 0.5 MG/ALBUTEROL SULFATE 2.5 MG AMPUL.NEB 3 ML INHALATION ×3 (08:44→09:00)
[2024-10-08 09:14] LABS: Hematocrit 42.1 % (37.0-47.0); Hemoglobin 13.7 g/dL (12.0-15.0); Immature Granulocyte Percent A 0.4 % (0-0.5); Lymphocytes Absolute Auto 1.59 K/mm3 (0.9-3.2); Mean Corpuscular HGB Conc 32.5 g/dl (32-36); Mean Corpuscular Hemoglobin 29.9 pg (26-34); Mean Corpuscular Volume 91.9 fl (80-100); Nucleated Red Blood Cells Absolute Auto 0.000 K/mm3 (0.0-0.012); Nucleated Red Blood Cells Perc 0.0 % (0.0-0.2); Platelet Count Result 303 k/mm3 (150-375); Red Blood Count 4.58 M/mm3 (4.2-5.4); White Blood Count 12.5 K/mm3 (4.5-10.0)
--- OUTSIDE RECORDS SUMMARY | 2024-10-08 09:16 | XMS_ITS | Clinical Summary ---
Author Organization [facility] Address [address] [place] [address] Care Team Providers Care Investigator Operator Name Role Phone Unavailable Primary Care Provider Unavailabl e Source Comments [facility],non-owned Affiliates and Associated Physician Practices is amultiple site organization consisting of ambulatory clinics and hospital sitesin [place], [place], [place] and [place]. This disclosure is being madepursuant to the Care Everywhere program and may not contain all informatio navailable regarding this patient. 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 Gender Identity Not on file Sexual Orientation [...] PM CDT Narrative Resulting Agency Comment [facility] [place] [address] [facility] [phone] Reyes Puente MD LAB - CHEMISTRY ORDERABLES Fi nal Result [facility] ACCOUNT BILL [address] [place] [address] from Last 3 Months or Most Recently Relevant to Health Maintenance Insurance [facility] CARE SELF PAY NO INSURANCE Member Subscriber Plan / Payer (Ef fective for All Dates) Name:Juan Liu Member ID:Not on file Relation to Subscriber:Not on file Name:JUAN LIU Subscriber ID:Not on file (Home) Address: [facility] [address] [place] [address] Payer ID:Not on file Group ID:Not on file Type:Self Pay Address: [place], [place] [facility]
[2024-10-08 09:37] LABS: Anion Gap 12 mmol/L (4-12); Blood Urea Nitrogen 22 mg/dL (7-17); Calcium 9.7 mg/dL (8.4-10.2); Carbon Dioxide 22 mmol/L (22-30); Chloride 106 mmol/L (98-107); Estimated CRCL calculation 82 ml/min; Estimated Glomerular Filt Rate > 60; Glucose 109 mg/dL (65-110); Potassium 4.1 mmol/L (3.4-5.0); Sodium 140 mmol/L (137-145)
[2024-10-08 09:41] LABS: NT Pro B Type Natriuretic Pept 88 pg/mL (19.9-100)
[2024-10-08 09:55] LABS: Influenza A QL RT-PCR Negative (Negative); Influenza B QL RT-PCR Negative (Negative); RSV RNA, RT-PCR Negative (Negative); SARS-CoV-2 RNA PCR Negative (Negative)
--- NOTE | 2024-10-08 10:14 | ED_ITS ---
HPI - Asthma General Chief Complaint: Asthma Stated Complaint: Asthma Time Seen by Provider: 10/08/24 08:29 Source: patient Mode of arrival: ambulatory Limitations: no limitations History of Present Illness HPI Narrative: 54-year-old with a history of diabetes, asthma here with a complains of shortness of breath for last few days. She states that she has been using her inhalers more frequently than normal. She denies any fever or chills. Has occasional nonproductive cough. No fever MD complaint: shortness of breath and wheezing Context: none known Associated symptoms: none Related Data Current Asthma Therapy: inhaled bronchodilator Allergies Allergy/AdvReac Type Severity Reaction Status Date / Time No Known Allergies Allergy Verified 10/08/24 09:05 Review of Systems 2 Review of Systems: All systems reviewed & are unremarkable except as noted in HPI and below Constitutional: Constitutional: Reports no additional constitutional complaints Eyes: Eyes: Reports no additional eye complaints ENT: Reports system reviewed and no additional complaints, except as documented Cardiovascular: Cardiovascular: Reports no additional cardiovascular complaints Respiratory: Respiratory: Reports as per HPI Gastrointestinal: Gastrointestinal: Reports no additional gastrointestinal complaints Musculoskeletal: Musculoskeletal: Reports no additional musculoskeletal complaints Integumentary/Breasts: Skin/Breast: Reports system reviewed and no additional complaints, except as docu Neurologic: Reports system reviewed and no additional complaints, except as documented PMFSH Past Medical History Medical History Anxiety Diabetes mellitus SESAR (obstructive sleep apnea) Bipap Asthma Calculus of kidney GERD (gastroesophageal reflux disease) Depression Surgical History Surgical History Delivery by section 4x Family History Family History Father Family history of malignant neoplasm Mother Patient's mother is in good health Social History Social History Smoking packs per day: 0.75 Smoking cigarettes per day: 15.0 Years smoked: 40 Smoking pack-years: 30.00 Smoking status: Current every day smoker Tobacco type: cigarettes Second hand tobacco smoke exposure: No Alcohol intake: current Alcohol use details: 6 drinks per year Substance use: unknown Substance use type: marijuana Lack of Transportation: No Lack of Food: Never True Current Housing: I Have Housing Concerned About Future Housing: No Difficulty Paying Gas/Electric Bills: No Difficulty Paying for Meds: No Currently Unemployed: No Education: High School Diploma/GED Difficulty w/ Childcare or Family Care: No Spiritual care concerns: No Exam 2 Narrative: GENERAL: Well-appearing, well-nourished, and in no acute distress. HEAD: Normocephalic, atraumatic. EYES: PERRLA and EOMI. ENT: Nares clear, no rhinorrhea or epistaxis. Mucous membranes moist. NECK: Supple. CHEST: Bilateral wheeze No respiratory distress. HEART: Regular rate and rhythm. No murmur heard. Normal peripheral pulses. ABDOMEN: Soft, nontender, nondistended, normal active bowel sounds. EXTREMITIES: Normal range of motion. No edema. SKIN: Warm, dry, no rash. NEURO: No focal deficits. Alert and oriented x3. PSYCH: Normal mood and affect. Course Course Emergency Course: Re-examined the patient is comfortably resting. He did inform her about the lab work, chest x-ray findings. Advised her to follow with her primary doctor take steroids as prescribed. Vital Signs Vital signs: Vital Signs Pulse Rate 94 10/08/24 08:47 Respiratory Rate 18 10/08/24 08:47 Pulse Rate 84 10/08/24 08:55 Respiratory Rate 24 H 10/08/24 08:55 Blood Pressure 130/73 10/08/24 08:55 Pulse Oximetry 94 10/08/24 08:55 Oxygen Delivery Room Air 10/08/24 08:55 MDM - Asthma Differential Diagnosis Differential diagnosis: Likely Acute exacerbation, Pneumonia and COPD exacerbation Medical Records Attestation: I reviewed the patient's medical records. Lab Data Attestation: I reviewed the patient's lab results. 10/08/24 08:48 10/08/24 08:48 Labs: Lab Results 10/08/24 10/08/24 Range/Units 08:48 09:02 WBC 12.5 H (4.5-10.0) K/mm3 RBC 4.58 (4.2-5.4) M/mm3 Hgb 13.7 (12.0-15.0) g/dL Hct 42.1 (37.0-47.0) % MCV 91.9 (80-100) fl MCH 29.9 (26-34) pg MCHC 32.5 (32-36) g/dl RDW 12.5 (11.5-14.5) % Plt Count 303 (150-375) k/mm3 MPV 10.2 (7.4-10.4) fl Immature Gran % (Auto) 0.4 (0-0.5) % Neut % (Auto) 80.4 H (45.5-73.1) % Lymph % (Auto) 12.7 L (18.3-44.2) % Ulster % (Auto) 5.9 (2.6-8.5) % Eos % (Auto) 0.3 (0-4.4) % Baso % (Auto) 0.3 (0.2-1.2) % Lymph # (Auto) 1.59 (0.9-3.2) K/mm3 Ulster # (Auto) 0.7 H (0.1-0.6) K/mm3 Eos # (Auto) 0.0 (0-0.3) K/mm3 Baso # (Auto) 0.0 (0.0-0.1) K/mm3 Abs Immat Gran (auto) 0.05 H (0.00-0.031) K/mm3 Absolute Neuts (auto) 10.0 H (1.3-6.7) K/mm3 Absolute Nucleated RBC 0.000 (0.0-0.012) K/mm3 Nucleated RBC % 0.0 (0.0-0.2) % Sodium 140 (137-145) mmol/L Potassium 4.1 (3.4-5.0) mmol/L Chloride 106 (98-107) mmol/L Carbon Dioxide 22 (22-30) mmol/L Anion Gap 12 (4-12) mmol/L BUN 22 H (7-17) mg/dL Creatinine 0.86 (0.7-1.0) mg/dL Estim Creat Clear Calc 82 ml/min Estimated GFR > 60 (59 - ) Glucose 109 (65-110) mg/dL Calcium 9.7 (8.4-10.2) mg/dL NT-Pro-B Natriuret Pep 88 (19.9-100) pg/mL Influenza A (RT-PCR) Negative (Negative) Influenza B (RT-PCR) Negative (Negative) RSV (RT-PCR) Negative (Negative) SARS-CoV-2 RNA (RT-PCR) Negative (Negative) Imaging Data Radiologist's impression: ITS Impressions Chest X-Ray 10/08/24 09:36 IMPRESSION: 1: Small opacities in the mid and lower lungs which represents atelectasis/scarring or infiltrates. Discharge Plan Discharge Clinical Impression: Asthma exacerbation Qualifiers: Asthma severity: mild Asthma persistence: intermittent Qualified Code(s): J 45.21 - Mild intermittent asthma with (acute) exacerbation Patient Disposition: Home Condition: Stable Instructions: Asthma (ED) Additional Instructions: continue home medications, take steroids as prescribed , watch your blood sugars. follow with your PMD as needed. Patient Language: Sinhala Prescriptions: New prednisone 20 mg tablet 20 mg PO BID Qty: 10 0RF No Action budesonide-formoterol [Symbicort] 160-4.5 mcg/actuation HFA aerosol inhaler See Rx Instructions .ROUTE .COMPLEX Qty: 30.6 3RF Dose Instruction: USE 2 INHALATIONS EVERY 12 HOURS Rx Instructions: USE 2 INHALATIONS EVERY 12 HOURS alprazolam 0.5 mg tablet 0.5 mg PO DAILY PRN (Reason: anxiety) Qty: 30 0RF ibuprofen 800 mg tablet 800 mg PO TID PRN (Reason: pain) 7 Days Qty: 21 0RF acetaminophen 500 mg tablet 1,000 mg PO TID PRN (Reason: sukhdev) 7 Days Qty: 42 0RF metformin 500 mg tablet See Rx Instructions .ROUTE .COMPLEX Qty: 180 2RF Dose Instruction: TAKE 1 TABLET TWICE A DAY Rx Instructions: TAKE 1 TABLET TWICE A DAY montelukast 10 mg tablet 10 mg PO DAILY Qty: 90 3RF Ozempic 1 mg/dose (4 mg/3 mL) pen injector 1 mg subcut WEEKLY Qty: 9 2RF rosuvastatin 5 mg tablet See Rx Instructions .ROUTE .COMPLEX Qty: 90 0RF Dose Instruction: TAKE 1 TABLET DAILY Rx Instructions: TAKE 1 TABLET DAILY bupropion HCl 150 mg tablet extended release 24 hr See Rx Instructions .ROUTE .COMPLEX Qty: 90 2RF Dose Instruction: TAKE 1 TABLET EVERY MORNING Rx Instructions: TAKE 1 TABLET EVERY MORNING lisinopril 5 mg tablet See Rx Instructions .ROUTE .COMPLEX Qty: 90 2RF Dose Instruction: TAKE 1 TABLET DAILY Rx Instructions: TAKE 1 TABLET DAILY albuterol sulfate 2.5 mg /3 mL (0.083 %) solution for nebulization See Rx Instructions .ROUTE .COMPLEX Qty: 810 0RF Dose Instruction: INHALE CONTENTS OF 1 VIAL 3 ML (2.5 MG) EVERY 6 HOURS NEEDED FOR SHORTNESS OF BREATH OR WHEEZING Rx Instructions: INHALE CONTENTS OF 1 VIAL 3 ML (2.5 MG) EVERY 6 HOURS NEEDED FOR SHORTNESS OF BREATH OR WHEEZING Follow-up/Referrals: Matthias Harden DO [Primary Care Provider, Internal Medicine] Time of Disposition: 10:17
--- NOTE | 2024-10-08 10:48 | PC.NURSE ---
As pt was getting dressed to leave, pt sitting on side of bed and hyperventilating. States the movement to get changed was too much and now she is struggling to breathe. Dr Gonzáles notified with orders received.
[2024-10-08] MEDS: ALBUTEROL SULFATE NEB 2.5 MG/3 ML INH INHALATION (10:57)
--- NOTE | 2024-10-08 11:01 | PC.NURSE ---
Pt states she has calmed down now. Pt calmly sitting and speaking in complete sentences. Resp in room with pt.
--- NOTE | 2024-10-08 11:26 | PC.NURSE ---
After pt received treatment, pts breathing is less labored and is able to speak in complete sentences. Took a trip around the ER nursing station. Pt has multiple coughing episodes. Dr Gonzáles notified. Pt will be resting and will reassess.
== END 2024-10-08 11:45 | disposition home or self-care (01) ==
PROVIDERS: Emergency Provider Family Medicine; PCP Internal Medicine
DX: J45.21 Mild intermittent asthma with (acute) exacerbation (principal); Z20.822 Contact with and (suspected) exposure to COVID-19; E11.9 Type 2 diabetes mellitus without complications; G47.33 Obstructive sleep apnea (adult) (pediatric); K21.9 Gastro-esophageal reflux disease without esophagitis; F32.A Depression, unspecified; F41.9 Anxiety disorder, unspecified; F17.210 Nicotine dependence, cigarettes, uncomplicated; Z87.442 Personal history of urinary calculi; Z79.84 Long term (current) use of oral hypoglycemic drugs; Z79.85 Long-term (current) use of injectable non-insulin antidiabetic drugs; Z79.899 Other long term (current) drug therapy
CPT/HCPCS: 36415; 71045; 80048; 83880; 85025; 87637; 94640; 96374; 99284; J2919